=== PATIENT | female | born 1960 | race Caucasian/White ===

== ENCOUNTER 2018-12-05 15:37 | Emergency (ER) | payer OTHER ==
[~2018-12-05] VITALS: Ht 167.6 cm; Wt 73.4 kg
[~2018-12-05 15:37] MED LIST: ACET500T98; CYCL10TA7 PO; IBUP-1542 PO
[2018-12-05 15:48] VITALS: Ht 167.6 cm; Wt 73.4 kg
[2018-12-05] MEDS ORDERED: ACETAMINOPHEN 500 MG TAB PO STA (17:42)
[2018-12-05] MEDS ORDERED: KETOROLAC 60 MG INJ IM STA (17:42)
[2018-12-05] MEDS ORDERED: traMADol 50 MG TAB PO ONE (18:00)
[2018-12-05] MEDS ORDERED: METHYLPREDNISOLONE 125 MG INJ IV ONE (20:30)
[2018-12-05] MEDS ORDERED: SOD CHLORIDE 0.9% 1,000 ML IV ONE (20:30)
[2018-12-05] MEDS ORDERED: ACET1TAB40 PO (23:38)
[2018-12-05] MEDS ORDERED: IBUP800T48 PO (23:38)
[2018-12-05 23:58] VITALS: BP 112/81; PULSE 76; RESP 16
--- NOTE | 2018-12-09 06:34 | ERD ---
ER Documentation Chief Complaint Chief Complaint Complains of generalized pain x 2 days HPI History of Present Illness: Patient reports complete body pain for 2 days. Patient reports fatigue. Patient tolerating p.o. fluids at home without difficulty. Patient denies sick contacts. Patient reports she is on a prophylactic tuberculosis treatment, INH for 1 month. Patient reports prior history of a chronic back pain issue that started in 2007 for herniated disc. At home pharmacological/nonpharmacological treatment for symptoms: Denies. Denies social concerns; Denies recent foreign travel ROS All systems reviewed and are negative except as per history of present illness. Medications Home Meds Active Scripts Ibuprofen* (Motrin*) 800 Mg Tab, 800 MG PO Q6H PRN for INFLAMATION, #30 TAB Prov:LUCY DOUGHERTY [employer] 12/05/18 Acetaminophen with Codeine (Acetaminophen-Cod #3 Tablet) 1 Each Tablet, 1 TAB PO Q8 PRN for PAIN, #7 TAB Prov:LUCY DOUGHERTY [employer] 12/05/18 Ibuprofen* (Ibuprofen*) 600 Mg Tablet, 600 MG PO Q8, #30 TAB Prov:SHERYL HOLLAND 02/22/15 Cyclobenzaprine Hcl* (Cyclobenzaprine Hcl*) 10 Mg Tablet, 10 MG PO TID, #15 TAB Prov:SHERYL HOLLAND 02/22/15 Reported Medications Acetaminophen (Tylenol) 500 Mg Tab 11/16/11 Allergies Allergies: Coded Allergies: No Known Allergy (Unverified , 11/16/11) PMhx/Soc History of Surgery: Yes (breast augmentation) Anesthesia Reaction: No Hx Neurological Disorder: No Hx Respiratory Disorders: No Hx Cardiac Disorders: No Hx Psychiatric Problems: No Hx Miscellaneous Medical Probl: No Hx Alcohol Use: No Hx Substance Use: No Hx Tobacco Use: No Smoking Status: Never smoker FmHx Family History: No diabetes Physical Exam Vitals Vital Signs Date Temp Pulse Resp B/P (MAP) Pulse Ox O2 O2 Flow FiO2 Time Delivery Rate 12/05/18 97.9 76 16 112/81 96 Room Air 23:58 (91) 12/05/18 69 104/62 20:45 (76) 108/69 (82) 123/84 (97) 12/05/18 83 21 94/55 (68) 97 Room Air 20:02 12/05/18 99.6 109 20 152/98 98 15:48 (116) Physical Exam Const: No acute distress Head: Atraumatic Eyes: Normal Conjunctiva ENT: Normal External Ears, Nose and Mouth. Neck: Full range of motion. No meningismus. Resp: Clear to auscultation bilaterally Cardio: Regular rate and rhythm, no murmurs Abd: Soft, non tender, non distended. Normal bowel sounds Skin: No petechiae or rashes Back: No midline or flank tenderness Ext: No cyanosis, or edema Neur: Awake and alert Psych: Normal Mood and Affect Result Diagram: 12/05/18193612/05/182016 Results 24 hrs Laboratory Tests Test 12/05/18 17:56 12/05/18 19:37 12/05/18 20:08 12/05/18 20:17 Urine Color YELLOW Urine Clarity CLEAR Urine pH 8.0 Urine Specific 1.009 [place] Urine Ketones NEGATIVE mg/dL Urine Nitrite NEGATIVE mg/dL Urine Bilirubin NEGATIVE mg/dL Urine NEGATIVE mg/dL Urobilinogen Urine Leukocyte TRACE Abhishek/ul Esterase Urine 1 /HPF Microscopic RBC Urine 1 /HPF Microscopic WBC Urine Squamous FEW /HPF Epithelial Cell s Urine NEGATIVE mg/dL Hemoglobin Urine Glucose NEGATIVE mg/dL Urine Total NEGATIVE mg/dl Protein White Blood 10.1 10^3/ul Count Red Blood Count 5.15 10^6/ul Hemoglobin 15.8 g/dl Hematocrit 44.9 % Mean 87.2 fl Corpuscular Volume Mean 30.7 pg Corpuscular Hemoglobin Mean 35.2 g/dl Corpuscular Hemoglobin Conc ent Red Cell 11.7 % Distribution Width Platelet Count 342 10^3/UL Mean Platelet 9.5 fl Volume Immature 0.400 % Granulocytes % Neutrophils % 73.0 % Lymphocytes % 17.7 % Monocytes % 8.2 % Eosinophils % 0.2 % Basophils % 0.5 % Nucleated Red 0.0 /100WBC Blood Cells % Immature 0.040 10^3/ul Granulocytes # Neutrophils # 7.4 10^3/ul Lymphocytes # 1.8 10^3/ul Monocytes # 0.8 10^3/ul Eosinophils # 0.0 10^3/ul Basophils # 0.1 10^3/ul Nucleated Red 0.0 10^3/ul Blood Cells # Erythrocyte 3 mm/Hr Sedimentation Rate C-Reactive 0.5 mg/dl Protein Blood Gas Blood venous Specimen Source Arterial Blood 12/05/2018 8:25: Date Drawn 54 PM Arterial Blood VENOUS LINE Gas Puncture Site Dion Test N/A Venous Blood pH 7.380 Venous Blood 40.5 mmHG pCO2 (Temp Corrected ) Venous Blood 41.5 mmHG pO2 (Temp Corrected ) Venous Blood 23.4 mmol/L HCO3 Venous Blood 78.4 mmHG Oxygen Saturation Venous Blood -1.5 mmol/L Base Excess Venous Blood 15.4 g/dl Total Hemoglobin Venous Blood 78.0 % Oxyhemoglobin Venous Blood 0.3 % Methemoglobin Carboxyhemoglob 0.2 % in Blood Gas 37.0 C Temperature Blood Gas 18 Actual Respiration Rat e Blood Gas ROOM AIR Modality FiO2 21.0 % Blood Gas Notified Whom Blood Gas 12/05/2018 8:31: Notified Time 47 PM Bedside Glucose 122 mg/dL Sodium Level 141 mmol/L Potassium Level 4.0 mmol/L Chloride Level 107 mmol/L Carbon Dioxide 24 mmol/L Level Anion Gap 10 Blood Urea 9 mg/dl Nitrogen Creatinine 0.61 mg/dl Est Glomerular > 60 mL/min Filtrat Rate mL/min Glucose Level 125 mg/dl Calcium Level 9.0 mg/dl Total Bilirubin 1.3 mg/dl Direct 0.00 mg/dl Bilirubin Indirect 1.3 mg/dl Bilirubin Aspartate Amino 22 IU/L Transf (AST/SGO T) Alanine 12 IU/L Aminotransferas e (ALT/SGPT) Alkaline 122 IU/L Phosphatase Total Protein 6.8 g/dl Albumin 4.0 g/dl Globulin 2.80 g/dl Albumin/Globuli 1.42 n Ratio Current Medications Medications Dose Sig/Mina Start Time Status Last (Trade) Ordered Route PRN Stop Time Admin Dose Reason Admin Ketorolac 60 mg ONCE STAT 12/05/18 DC 12/05/18 Tromethamine IM 17:42 17:53 (Toradol) 12/05/18 17:44 Tramadol 50 mg ONCE ONCE 12/05/18 DC 12/05/18 HCl PO 18:00 17:53 (Ultram) 12/05/18 18:01 1,000 mg ONCE STAT 12/05/18 DC 12/05/18 Acetaminophen PO 17:42 17:53 (Tylenol 12/05/18 17:44 Tab) Sodium 1,000 ml @ Q1H ONCE 12/05/18 DC 3/28/19 Chloride 1,000 mls/hr IV 20:30 20:14 12/05/18 21:29 125 mg ONCE ONCE 12/05/18 DC 12/05/18 Methylprednis IV 20:30 20:14 olone Sodium 12/05/18 20:31 Succinate (Solu-Medrol) Procedures/MDM CBC without leukocytosis ED course includes a thorough examination and history. Medications: Tramadol for pain AND acetaminophen AND ketorolac Imaging: -- Labs: -- Patient reassessment at 1930: No source of infection found, urinalysis negative. Influenza negative. Will order labs patient reporting decrease in pain. Further workup. Will order labs (CBC, inflammatory markers). Patient reassessment at 20:03: Informed by nursing staff that patient became dizzy and diaphoretic, patient moved to ED bed. Verbal orders for saline lock and IV NS. Orthostatic vital signs.. We will continue to monitor . Labs ordered, VBG, CMP. POC glucose ordered. Patient reassessment at 2140: Patient reporting increase in pain, REPORTS that pain is localized to back midline. Will order x-rays of lumbar and thoracic. Low suspicion for life-threatening medical emergency. Low suspicion for infectious process that is causing generalized body pain. Patient denies loss of bladder or bowel. Otherwise healthy patient presenting with constellation of symptoms likely representing uncomplicated back pain and total body pain as characterized by history, physical exam findings, radiologic findings, lab findings. WBC without leukocytosis, hemoglobin hematocrit within normal limits. CMP without acidosis or elecROlight and abnormality. Inflammatory markers within normal limits. No acute findings on back x-rays, no stenosis or herniated disc. Urinalysis negative for infection. No respiratory distress, otherwise relatively well appearing and nontoxic. Patient educated on diagnoses, prescriptions, follow-up care, return precautions. Strict return precautions given for worsening condition; questions answered discharge. Disposition for discharge with followup in 2 days with PCP/clinic. Departure Diagnosis: Primary Impression: Back pain Back pain location: back pain in unspecified location Chronicity: unspecified Back pain laterality: midline Qualified Codes: M54.89 - Other dorsalgia Additional Impression: Total body pain Condition: Stable Patient Instructions: Back Pain (Acute Or Chronic) Additional Instructions: Thank you very much for allowing us to participate in your care. Your health and safety is our top priority at [facility]. Call your primary care doctor TOMORROW for an appointment during the next 2-4 days and bring all the information and medications prescribed. Have prescriptions filled and follow precisely the directions on the label. If the symptoms get worse and your provider is unavailable, return to the Emergency Department immediately. LUCY DOUGHERTY NP Dec 09, 2018 06:31
== END 2018-12-05 23:58 | disposition home or self-care (01) ==
LOC: FTE 15:37
DX: M54.89 Other dorsalgia (principal)
CPT/HCPCS: 36415; 71046; 72072; 72100; 80053; 81001; 82803; 82962; 85025; 85651; 86140; 87400; 93005; 96372; 96374; 99285; J1885; J2930; J7030